=== PATIENT | female | born 1940 | race Two or more races ===

== ENCOUNTER 2017-02-03 15:09 | Emergency (ER) | payer OTHER ==
[~2017-02-03] VITALS: Ht 180.3 cm; Wt 72.6 kg
[~2017-02-03 15:09] MED LIST: ASP81EC PO; BENA40TA7 PO; GLIP-115; MET25T PO; METF-370 PO; PAR20T PO; SIMV20TA90 PO; TOPI50TA32
[2017-02-03 17:37] LABS: Basophils # (auto) 0.1 uL; Basophils % (auto) 1.2 % (0.0-2.0); Eosinophils # (auto) 0.3 uL; Eosinophils % (auto) 4.9 % (0.0-7.0); Hematocrit 43.4 % (36.0-46.0); Hemoglobin 14.8 g/dL (12.2-16.2); Lymphocytes # (auto) 2.7 uL; Lymphocytes % (auto) 50.6 % (10.0-50.0); Mean Corpuscular Hgb Conc. 34.2 g/dL (32.0-36.0); Mean Corpuscular Volume 93.6 fL (80.0-100.0); Mean Platelet Volume 8.3 fL (6.9-10.8); Monocytes # (auto) 0.4 uL; Monocytes % (auto) 6.7 % (0.0-12.0); Neutrophils # (auto) 1.9 uL; Neutrophils % (auto) 36.6 % (37.0-80.0); Nucleated Red Blood Cells % 0.1 %; Platelet Count (auto) 216 10^3/uL (140-450); Red Cell Distribution Width 12.3 % (11.8-14.3); White Blood Cell 5.2 10^3/uL (4.4-10.8)
[2017-02-03 17:46] LABS: Albumin 4.2 g/dL (3.4-5.0); BUN/Creatinine Ratio 17.6; Calcium 9.6 mg/dL (8.5-10.1)
[2017-02-03 17:49] LABS: Bilirubin, Total 0.4 mg/dL (0.2-1.0); Total Protein 8.4 g/dL (6.4-8.2)
[2017-02-03 17:55] VITALS: BP 149/85
[2017-02-03] MEDS ORDERED: SODIUM CHLORIDE 0.9% 500 ML IV ONE (18:04)
[2017-02-03] MEDS ORDERED: InsuLIN REG 1unit/0.01ml Soln (100units/ml) IV ONE (18:15)
[2017-02-03 18:33] LABS: Urine Bilirubin Negative (Negative); Urine Blood Negative /uL (Negative); Urine Color Colorless (Yellow); Urine Glucose 4+ mg/dL (Normal); Urine Ketone TRACE (Negative); Urine Mucus FEW (None Seen); Urine Nitrite Negative (Negative); Urine RBC 3 /hpf (0 - 4); Urine Squamous Epithelial Cell FEW /hpf (<5); Urine Urobilinogen Normal (Negative); Urine pH 5.5 (5.0-8.0)
== END 2017-02-03 19:40 | disposition home or self-care (01) ==
LOC: ER 15:12
DX: E11.65 Type 2 diabetes mellitus with hyperglycemia (principal); N39.0 Urinary tract infection, site not specified; I25.10 Atherosclerotic heart disease of native coronary artery without angina pectoris; K21.9 Gastro-esophageal reflux disease without esophagitis; E78.5 Hyperlipidemia, unspecified; I10 Essential (primary) hypertension; I25.2 Old myocardial infarction; Z98.61 Coronary angioplasty status; Z79.82 Long term (current) use of aspirin; Z79.899 Other long term (current) drug therapy
CPT/HCPCS: 36415; 80053; 81001; 82962; 85025; 93005; 94761; 96361; 96374; 99285; J1815; J7030

== ENCOUNTER 2017-03-22 05:56 | Emergency (ER) | payer OTHER ==
[~2017-03-22] VITALS: Ht 154.9 cm; Wt 68.0 kg
[2017-03-22 07:10] LABS: Basophils # (auto) 0.1 uL; Basophils % (auto) 1.3 % (0.0-2.0); Eosinophils # (auto) 0.3 uL; Eosinophils % (auto) 5.9 % (0.0-7.0); Hematocrit 39.5 % (36.0-46.0); Hemoglobin 13.3 g/dL (12.2-16.2); Lymphocytes # (auto) 2.1 uL; Lymphocytes % (auto) 46.6 % (10.0-50.0); Mean Corpuscular Hemoglobin 31.5 pg (28.0-32.0); Mean Corpuscular Hgb Conc. 33.7 g/dL (32.0-36.0); Mean Corpuscular Volume 93.5 fL (80.0-100.0); Monocytes # (auto) 0.4 uL; Monocytes % (auto) 8.6 % (0.0-12.0); Neutrophils # (auto) 1.7 uL; Neutrophils % (auto) 37.6 % (37.0-80.0); Platelet Count (auto) 216 10^3/uL (140-450); Red Blood Cells 4.23 10^6/uL (4.0-5.20); Red Cell Distribution Width 12.5 % (11.8-14.3); White Blood Cell 4.5 10^3/uL (4.4-10.8)
[2017-03-22 07:17] LABS: Urine Bacteria FEW /hpf (None Seen); Urine Blood Negative /uL (Negative); Urine Specific Gravity 1.013 (1.001-1.035); Urine WBC 8 /hpf (0 - 5)
[2017-03-22 07:24] LABS: INR 0.95 (0.9-1.15); Partial Thromboplastin Time 27.8 sec (22.64-33.71); Prothrombin Time 10.4 sec (9.37-12.3)
[2017-03-22 07:25] LABS: Alanine Aminotransferase 23 U/L (13-56); Albumin 3.4 g/dL (3.4-5.0); Amylase 43 U/L (25-115); Anion Gap 8 (5-15); Aspartate Aminotransferase 18 U/L (15-37); BUN/Creatinine Ratio 30.4; Blood Urea Nitrogen 21 mg/dL (7-18); Calcium 8.9 mg/dL (8.5-10.1); Carbon Dioxide 25 mmol/L (21-32); Chloride 103 mmol/L (98-107); GFR African American 106 mL/min; GFR Non-African American 87 mL/min; Glucose 304 mg/dL (74-106); Lipase 179 U/L (73-393); Potassium 4.3 mmol/L (3.5-5.1); Sodium 136 mmol/L (136-145)
[2017-03-22 07:30] LABS: Alkaline Phosphatase 79 U/L (45-117); Bilirubin, Total 0.4 mg/dL (0.2-1.0); Total Protein 7.2 g/dL (6.4-8.2)
[2017-03-22] MEDS ORDERED: SODIUM CHLORIDE 0.9% 1,000 ML IV ONE (07:58)
[2017-03-22] MEDS ORDERED: ASPirin 81 mg TAB PO ONE (08:00)
[2017-03-22] MEDS ORDERED: cefTRIAXone 1GM/50ML D5W 50 ML IV ONE (08:00)
[2017-03-22 09:41] VITALS: BP 131/71
== END 2017-03-22 10:27 | disposition home or self-care (01) ==
LOC: ER 06:15
DX: N39.0 Urinary tract infection, site not specified (principal); E11.9 Type 2 diabetes mellitus without complications; R51 Headache; K21.9 Gastro-esophageal reflux disease without esophagitis; I10 Essential (primary) hypertension; Z86.73 Personal history of transient ischemic attack (TIA), and cerebral infarction without residual deficits; Z95.1 Presence of aortocoronary bypass graft; Z98.61 Coronary angioplasty status
CPT/HCPCS: 36415; 80053; 81001; 82150; 82962; 83690; 83735; 84443; 84484; 85025; 85610; 85730; 93005; 96361; 96365; 99285; J0696; J7030

== ENCOUNTER 2017-03-30 07:48 | Emergency (ER) | payer OTHER ==
[~2017-03-30] VITALS: Ht 154.9 cm; Wt 70.3 kg
[2017-03-30 08:43] LABS: Basophils # (auto) 0.1 uL; Basophils % (auto) 1.4 % (0.0-2.0); Eosinophils # (auto) 0.2 uL; Eosinophils % (auto) 4.7 % (0.0-7.0); Hematocrit 41.3 % (36.0-46.0); Lymphocytes # (auto) 1.8 uL; Lymphocytes % (auto) 40.2 % (10.0-50.0); Mean Corpuscular Hemoglobin 31.8 pg (28.0-32.0); Mean Corpuscular Volume 93.7 fL (80.0-100.0); Mean Platelet Volume 7.7 fL (6.9-10.8); Monocytes # (auto) 0.3 uL; Monocytes % (auto) 6.9 % (0.0-12.0); Neutrophils # (auto) 2.1 uL; Neutrophils % (auto) 46.8 % (37.0-80.0); Nucleated Red Blood Cells % 0.1 %; Platelet Count (auto) 238 10^3/uL (140-450); Red Cell Distribution Width 12.7 % (11.8-14.3); White Blood Cell 4.5 10^3/uL (4.4-10.8)
[2017-03-30 08:50] LABS: Urine Bilirubin Negative (Negative); Urine Blood Negative /uL (Negative); Urine Color Yellow (Yellow); Urine Glucose 3+ mg/dL (Normal); Urine Ketone Negative (Negative); Urine Nitrite Negative (Negative); Urine RBC 1 /hpf (0 - 4); Urine Squamous Epithelial Cell FEW /hpf (<5); Urine Urobilinogen Normal (Negative)
[2017-03-30 08:56] LABS: Albumin 3.8 g/dL (3.4-5.0); BUN/Creatinine Ratio 15.6; Calcium 9.4 mg/dL (8.5-10.1); Potassium 4.5 mmol/L (3.5-5.1)
[2017-03-30 08:58] LABS: Bilirubin, Total 0.5 mg/dL (0.2-1.0); Total Protein 7.7 g/dL (6.4-8.2)
[2017-03-30] MEDS ORDERED: NITROFURANTOIN (MONO) 100 mg CAP PO ONE (09:30)
[2017-03-30 10:30] VITALS: BP 132/78
== END 2017-03-30 11:29 | disposition home or self-care (01) ==
LOC: ER 07:48
DX: N39.0 Urinary tract infection, site not specified (principal); K59.00 Constipation, unspecified; K21.9 Gastro-esophageal reflux disease without esophagitis; I25.10 Atherosclerotic heart disease of native coronary artery without angina pectoris; I10 Essential (primary) hypertension; E11.9 Type 2 diabetes mellitus without complications; E78.5 Hyperlipidemia, unspecified; I25.2 Old myocardial infarction; Z79.899 Other long term (current) drug therapy; Z98.61 Coronary angioplasty status
CPT/HCPCS: 36415; 74176; 80053; 81001; 85025; 93005

== ENCOUNTER 2017-04-06 07:05 | Emergency (ER) | payer OTHER ==
[~2017-04-06] VITALS: Ht 154.9 cm; Wt 70.3 kg
[2017-04-06 07:41] LABS: Urine Bilirubin Negative (Negative); Urine Blood Negative /uL (Negative); Urine Color Yellow (Yellow); Urine Glucose 3+ mg/dL (Normal); Urine Ketone TRACE (Negative); Urine Nitrite Negative (Negative); Urine RBC <1 /hpf (0 - 4); Urine Squamous Epithelial Cell FEW /hpf (<5); Urine Urobilinogen Normal (Negative); Urine pH 5.5 (5.0-8.0)
[2017-04-06 08:07] LABS: Basophils # (auto) 0.1 uL; Basophils % (auto) 2.2 % (0.0-2.0); Eosinophils # (auto) 0.3 uL; Hematocrit 42.8 % (36.0-46.0); Hemoglobin 14.7 g/dL (12.2-16.2); Lymphocytes # (auto) 1.7 uL; Lymphocytes % (auto) 43.3 % (10.0-50.0); Mean Corpuscular Hemoglobin 32.2 pg (28.0-32.0); Mean Corpuscular Hgb Conc. 34.4 g/dL (32.0-36.0); Mean Corpuscular Volume 93.6 fL (80.0-100.0); Mean Platelet Volume 7.7 fL (6.9-10.8); Monocytes # (auto) 0.3 uL; Neutrophils # (auto) 1.5 uL; Neutrophils % (auto) 39.5 % (37.0-80.0); Nucleated Red Blood Cells % 0.2 %; Platelet Count (auto) 221 10^3/uL (140-450); Red Cell Distribution Width 12.4 % (11.8-14.3); White Blood Cell 3.8 10^3/uL (4.4-10.8)
[2017-04-06 08:36] LABS: Albumin 3.9 g/dL (3.4-5.0); Alkaline Phosphatase 82 U/L (45-117); Anion Gap 10 (5-15); Aspartate Aminotransferase 16 U/L (15-37); Bilirubin, Total 0.5 mg/dL (0.2-1.0); Blood Urea Nitrogen 15 mg/dL (7-18); Carbon Dioxide 26 mmol/L (21-32); Chloride 101 mmol/L (98-107); GFR African American 96 mL/min; GFR Non-African American 79 mL/min; Glucose 320 mg/dL (74-106); Magnesium 2.1 mg/dL (1.6-2.6); Potassium 4.5 mmol/L (3.5-5.1); Sodium 137 mmol/L (136-145)
[2017-04-06 09:27] VITALS: BP 138/82
== END 2017-04-06 09:45 | disposition home or self-care (01) ==
LOC: ER 07:05
DX: N39.0 Urinary tract infection, site not specified (principal); E11.65 Type 2 diabetes mellitus with hyperglycemia; K21.9 Gastro-esophageal reflux disease without esophagitis; I10 Essential (primary) hypertension; I25.2 Old myocardial infarction; E78.5 Hyperlipidemia, unspecified; Z98.61 Coronary angioplasty status; Z79.4 Long term (current) use of insulin; Z86.73 Personal history of transient ischemic attack (TIA), and cerebral infarction without residual deficits
CPT/HCPCS: 36415; 71020; 74176; 80053; 81001; 83735; 84484; 85025; 93005

== ENCOUNTER 2017-07-17 01:02 | Inpatient (IN) | payer OTHER, MEDICAID ==
[~2017-07-17] VITALS: Ht 162.6 cm; Wt 72.6 kg
[2017-07-17] MEDS ORDERED: ONDANSETRON HCL 4 MG/2 ML VIAL IV ONE (01:45)
[2017-07-17] MEDS ORDERED: AMIODARONE HCL 150 MG in D5W 5% 100 ML IV ONE (01:45)
[2017-07-17] MEDS ORDERED: AMIODARONE HCL 900 MG in DEXTROSE 500 ML IV SCH (01:46)
[2017-07-17 02:04] LABS: Basophils # (auto) 0.1 uL; Basophils % (auto) 1.1 % (0.0-2.0); Eosinophils # (auto) 0.4 uL; Eosinophils % (auto) 5.4 % (0.0-7.0); Hemoglobin 12.9 g/dL (12.2-16.2); Lymphocytes # (auto) 3.6 uL; Lymphocytes % (auto) 52.3 % (10.0-50.0); Mean Corpuscular Hemoglobin 31.6 pg (28.0-32.0); Mean Corpuscular Hgb Conc. 33.8 g/dL (32.0-36.0); Mean Corpuscular Volume 93.6 fL (80.0-100.0); Monocytes # (auto) 0.5 uL; Monocytes % (auto) 7.5 % (0.0-12.0); Neutrophils # (auto) 2.4 uL; Neutrophils % (auto) 33.7 % (37.0-80.0); Nucleated Red Blood Cells % 0.1 %; Platelet Count (auto) 244 10^3/uL (140-450); Red Blood Cells 4.06 10^6/uL (4.0-5.20); Red Cell Distribution Width 12.7 % (11.8-14.3)
[2017-07-17 02:21] LABS: INR 0.93 (0.9-1.15); Partial Thromboplastin Time 28.8 sec (22.64-33.71); Prothrombin Time 10.1 sec (9.37-12.3)
[2017-07-17 02:27] LABS: Anion Gap 12 (5-15); Carbon Dioxide 22 mmol/L (21-32); Chloride 104 mmol/L (98-107); Glucose 215 mg/dL (74-106); Sodium 138 mmol/L (136-145)
[2017-07-17 02:28] LABS: Alanine Aminotransferase 40 U/L (13-56); Albumin 3.5 g/dL (3.4-5.0); Aspartate Aminotransferase 47 U/L (15-37); BUN/Creatinine Ratio 27.6; Blood Urea Nitrogen 24 mg/dL (7-18); Calcium 8.7 mg/dL (8.5-10.1); GFR African American 81 mL/min; GFR Non-African American 67 mL/min; Magnesium 1.8 mg/dL (1.6-2.6)
[2017-07-17] MEDS ORDERED: ENOXAPARIN SOD 60 MG/0.6 ML SYRINGE SC ONE (02:30)
[2017-07-17] MEDS ORDERED: ASPirin 325 MG TAB PO ONE (02:30)
[2017-07-17] MEDS ORDERED: NITROGLYCERIN 0.4MG/HR TOPICAL PATCH TD ONE (02:30)
[2017-07-17 02:33] LABS: Alkaline Phosphatase 68 U/L (45-117); Bilirubin, Total 0.4 mg/dL (0.2-1.0); Total Protein 7.2 g/dL (6.4-8.2)
[2017-07-17] MEDS ORDERED: DEXTROSE (50%) 50ML SYRG IV PRN (08:00)
[2017-07-17] MEDS ORDERED: NITROGLYCERIN 0.4 MG SL TAB SL PRN (08:00)
[2017-07-17] MEDS ORDERED: MORPHINE SULFATE 4 MG/ML SYR/VIAL IV PRN (08:00)
[2017-07-17] MEDS ORDERED: LACTULOSE 20Gm/30ML SOLN PO PRN (08:00)
[2017-07-17] MEDS ORDERED: SODIUM CHLORIDE 0.9% 1,000 ML IV ONE ×2 (08:15)
[2017-07-17 09:09] LABS: CRP High Sensitivity 0.27 mg/dL (< 0.3)
[2017-07-17] MEDS ORDERED: TOPIRAMATE 25 MG TAB PO SCH (10:00)
[2017-07-17] MEDS ORDERED: ENOXAPARIN SOD 40 MG/0.4 ML SYRINGE SC SCH (10:00)
[2017-07-17] MEDS ORDERED: PARoxetine 20 MG TAB PO SCH (10:00)
[2017-07-17] MEDS: SODIUM CHLORIDE 0.9% 1,000 ML IV SCH ×2 (10:38→22:50)
[2017-07-17] MEDS: METOPROLOL TARTRATE 25 MG TAB PO SCH ×2 (10:39→22:00)
[2017-07-17] MEDS ORDERED: CEFTRIAXONE SODIUM 2 GM in D5W 5% 50 ML IV ONE (10:45)
[2017-07-17 11:00] VITALS: BP 125/71
[2017-07-17] MEDS: ACCU-CHEK COMFORT CURVE STRIP VI SCH ×3 (12:58→22:25)
[2017-07-17] MEDS: InsuLIN REG 1unit/0.01ml Soln (100units/ml) SC SCH ×3 (12:58→22:28)
[2017-07-17 16:00] VITALS: BP 107/57
[2017-07-17 20:00] VITALS: BP 103/49
[2017-07-17] MEDS: ATORVASTATIN 20 MG TAB PO SCH (22:38)
[2017-07-17] MEDS: AMIODARONE HCL 200 MG TAB PO SCH (22:38)
[2017-07-17] MEDS: ENOXAPARIN SOD 100 MG/1 ML SYRINGE SC SCH (22:39)
[2017-07-18] VITALS: BP 114/73
[2017-07-18 04:00] VITALS: BP 97/57
[2017-07-18 04:46] LABS: Urine Bacteria NONE SEEN /hpf (None Seen); Urine Blood Negative /uL (Negative); Urine Specific Gravity 1.005 (1.001-1.035); Urine WBC 1 /hpf (0 - 5)
[2017-07-18 05:57] LABS: Cholesterol 148 mg/dL (< 200); HDL Cholesterol 42 mg/dL (40-59); LDL Cholesterol 97 mg/dL (< 100); Triglycerides 89 mg/dL (< 150)
[2017-07-18] MEDS: InsuLIN REG 1unit/0.01ml Soln (100units/ml) SC SCH ×4 (07:00→21:44)
[2017-07-18 08:00] VITALS: BP 103/67
[2017-07-18] MEDS ORDERED: cefTRIAXone 1GM/10ml IVPUSH 10 ML IV SCH (09:00)
[2017-07-18] MEDS: ACCU-CHEK COMFORT CURVE STRIP VI SCH ×4 (09:02→21:44)
[2017-07-18] MEDS: AMIODARONE HCL 200 MG TAB PO SCH ×2 (09:51→21:43)
[2017-07-18] MEDS: ASPirin 81 mg TAB PO SCH (09:51)
[2017-07-18] MEDS: ENOXAPARIN SOD 100 MG/1 ML SYRINGE SC SCH ×2 (09:52→21:44)
[2017-07-18] MEDS: METOPROLOL TARTRATE 25 MG TAB PO SCH ×2 (09:52→21:44)
[2017-07-18 12:00] VITALS: BP 135/70
[2017-07-18] MEDS: SODIUM CHLORIDE 0.9% 1,000 ML IV SCH (14:36)
[2017-07-18 16:00] VITALS: BP 122/64
[2017-07-18] MEDS: ATORVASTATIN 20 MG TAB PO SCH (21:43)
[2017-07-18] MEDS: SENNA 8.6 MG TAB PO SCH (21:44)
[2017-07-18 22:00] VITALS: BP 132/67
[2017-07-19] MEDS: SODIUM CHLORIDE 0.9% 1,000 ML IV SCH ×3 (01:35→19:47)
[2017-07-19 05:01] VITALS: BP 104/53
[2017-07-19 05:51] LABS: Basophils # (auto) 0.1 uL; Basophils % (auto) 1.2 % (0.0-2.0); Eosinophils # (auto) 0.5 uL; Eosinophils % (auto) 9.5 % (0.0-7.0); Hematocrit 33.3 % (36.0-46.0); Hemoglobin 11.5 g/dL (12.2-16.2); Lymphocytes # (auto) 2.5 uL; Lymphocytes % (auto) 45.7 % (10.0-50.0); Mean Corpuscular Hemoglobin 32.2 pg (28.0-32.0); Mean Corpuscular Hgb Conc. 34.5 g/dL (32.0-36.0); Mean Corpuscular Volume 93.5 fL (80.0-100.0); Monocytes # (auto) 0.5 uL; Monocytes % (auto) 10.1 % (0.0-12.0); Neutrophils # (auto) 1.8 uL; Neutrophils % (auto) 33.5 % (37.0-80.0); Nucleated Red Blood Cells % 0.1 %; Platelet Count (auto) 193 10^3/uL (140-450); Red Blood Cells 3.56 10^6/uL (4.0-5.20); Red Cell Distribution Width 12.8 % (11.8-14.3); White Blood Cell 5.4 10^3/uL (4.4-10.8)
[2017-07-19 06:13] LABS: BUN/Creatinine Ratio 17.9; Calcium 8.2 mg/dL (8.5-10.1); Potassium 4.2 mmol/L (3.5-5.1)
[2017-07-19] MEDS: ACCU-CHEK COMFORT CURVE STRIP VI SCH ×4 (06:28→21:36)
[2017-07-19] MEDS: InsuLIN REG 1unit/0.01ml Soln (100units/ml) SC SCH ×4 (06:30→21:46)
[2017-07-19] MEDS: ASPirin 81 mg TAB PO SCH (08:37)
[2017-07-19] MEDS: AMIODARONE HCL 200 MG TAB PO SCH ×2 (08:37→21:32)
[2017-07-19] MEDS: ENOXAPARIN SOD 100 MG/1 ML SYRINGE SC SCH ×2 (08:38→21:33)
[2017-07-19] MEDS: METOPROLOL TARTRATE 25 MG TAB PO SCH ×2 (08:40→21:35)
[2017-07-19 08:42] VITALS: BP 123/66
[2017-07-19 13:00] VITALS: BP 127/63
[2017-07-19 17:08] VITALS: BP 134/65
[2017-07-19] MEDS: ATORVASTATIN 20 MG TAB PO SCH (21:31)
[2017-07-19] MEDS: SENNA 8.6 MG TAB PO SCH (21:34)
[2017-07-19 22:00] VITALS: BP 126/66
[2017-07-20 05:00] VITALS: BP 135/66
[2017-07-20] MEDS: ACCU-CHEK COMFORT CURVE STRIP VI SCH ×4 (06:28→21:44)
[2017-07-20] MEDS: InsuLIN REG 1unit/0.01ml Soln (100units/ml) SC SCH ×4 (06:31→21:44)
[2017-07-20 06:37] LABS: Basophils # (auto) 0.1 uL; Basophils % (auto) 1.3 % (0.0-2.0); Eosinophils # (auto) 0.5 uL; Eosinophils % (auto) 8.8 % (0.0-7.0); Hematocrit 35.3 % (36.0-46.0); Hemoglobin 12.2 g/dL (12.2-16.2); Lymphocytes # (auto) 2.2 uL; Lymphocytes % (auto) 41.9 % (10.0-50.0); Mean Corpuscular Hemoglobin 32.3 pg (28.0-32.0); Mean Corpuscular Hgb Conc. 34.5 g/dL (32.0-36.0); Mean Corpuscular Volume 93.4 fL (80.0-100.0); Monocytes # (auto) 0.5 uL; Monocytes % (auto) 10.5 % (0.0-12.0); Neutrophils # (auto) 1.9 uL; Neutrophils % (auto) 37.5 % (37.0-80.0); Nucleated Red Blood Cells % 0.1 %; Platelet Count (auto) 203 10^3/uL (140-450); Red Blood Cells 3.78 10^6/uL (4.0-5.20); White Blood Cell 5.1 10^3/uL (4.4-10.8)
[2017-07-20 06:54] LABS: BUN/Creatinine Ratio 18.5; Calcium 8.5 mg/dL (8.5-10.1); Magnesium 2.1 mg/dL (1.6-2.6); Potassium 4.2 mmol/L (3.5-5.1)
[2017-07-20 08:22] VITALS: BP 128/62
[2017-07-20] MEDS: METOPROLOL TARTRATE 25 MG TAB PO SCH ×2 (09:42→21:21)
[2017-07-20] MEDS: ENOXAPARIN SOD 100 MG/1 ML SYRINGE SC SCH ×2 (10:00→21:21)
[2017-07-20] MEDS: ASPirin 81 mg TAB PO SCH (10:20)
[2017-07-20] MEDS: AMIODARONE HCL 200 MG TAB PO SCH ×2 (10:20→21:20)
[2017-07-20 11:28] VITALS: BP 135/74
[2017-07-20 17:12] VITALS: BP 141/71
[2017-07-20] MEDS: SODIUM CHLORIDE 0.9% 1,000 ML IV SCH (17:52)
[2017-07-20] MEDS: ATORVASTATIN 20 MG TAB PO SCH (21:20)
[2017-07-20] MEDS: SENNA 8.6 MG TAB PO SCH (21:20)
[2017-07-21 04:59] VITALS: BP 119/66
[2017-07-21] MEDS: ACCU-CHEK COMFORT CURVE STRIP VI SCH ×2 (06:18→12:01)
[2017-07-21] MEDS: InsuLIN REG 1unit/0.01ml Soln (100units/ml) SC SCH ×2 (06:18→11:30)
[2017-07-21] MEDS: SODIUM CHLORIDE 0.9% 1,000 ML IV SCH (06:50)
[2017-07-21 06:53] LABS: Basophils # (auto) 0.1 uL; Basophils % (auto) 1.1 % (0.0-2.0); Eosinophils # (auto) 0.5 uL; Eosinophils % (auto) 8.9 % (0.0-7.0); Hematocrit 35.8 % (36.0-46.0); Hemoglobin 12.2 g/dL (12.2-16.2); Lymphocytes # (auto) 2.3 uL; Lymphocytes % (auto) 45.6 % (10.0-50.0); Mean Corpuscular Hgb Conc. 34.1 g/dL (32.0-36.0); Monocytes # (auto) 0.5 uL; Monocytes % (auto) 10.4 % (0.0-12.0); Neutrophils # (auto) 1.7 uL; Nucleated Red Blood Cells % 0.2 %; Platelet Count (auto) 208 10^3/uL (140-450); Red Blood Cells 3.81 10^6/uL (4.0-5.20); Red Cell Distribution Width 13.2 % (11.8-14.3); White Blood Cell 5.1 10^3/uL (4.4-10.8)
[2017-07-21 07:13] LABS: Potassium 4.7 mmol/L (3.5-5.1)
[2017-07-21 07:19] LABS: BUN/Creatinine Ratio 19.4
[2017-07-21 09:00] VITALS: BP 123/60
[2017-07-21] MEDS: METOPROLOL TARTRATE 25 MG TAB PO SCH (10:00)
[2017-07-21] MEDS: ENOXAPARIN SOD 100 MG/1 ML SYRINGE SC SCH (10:00)
[2017-07-21] MEDS: ASPirin 81 mg TAB PO SCH (10:07)
[2017-07-21] MEDS: AMIODARONE HCL 200 MG TAB PO SCH (10:07)
[2017-07-21] MEDS ORDERED: SODIUM CHL 0.9% 0 ML ONE ×2 (11:23→12:59)
[2017-07-21] MEDS ORDERED: ANGIOMAX 250 MG VIAL IV ONE ×2 (11:23→12:58)
[2017-07-21] MEDS ORDERED: LIDOCAINE 2%HCL (LOCAL ANESTH.) INJ 20ML MDV ONE (11:30)
[2017-07-21] MEDS ORDERED: IOHEXOL 350 MG/ML 100ML IJ ONE (11:30)
[2017-07-21 11:41] LABS: INR 0.95 (0.9-1.15); Partial Thromboplastin Time 29.9 sec (22.64-33.71); Prothrombin Time 10.4 sec (9.37-12.3)
[2017-07-21 12:12] VITALS: BP 136/73
[2017-07-21] MEDS ORDERED: fentaNYL CITRATE 100 MCG/2 ML VL ONE (12:58)
[2017-07-21] MEDS ORDERED: MIDAZOLAM HCL 1MG/1ML-2 ML VIAL ONE (12:59)
[2017-07-21 16:08] VITALS: BP 123/60
[2017-07-21 16:37] VITALS: BP 120/64
== END 2017-07-21 17:40 | disposition home or self-care (01) | DRG 281 ==
LOC: ER 01:02 → TELE 01:03 → DOU IN ICU 11:02 → TELE-CENTR 07-18 16:17
PROVIDERS: ADMIT Internal Medicine; ATTEND Internal Medicine
PROC: 4A023N7 Measurement of Cardiac Sampling and Pressure, Left Heart, Percutaneous Approach (ICD-10-PCS; principal; 2017-07-21)
PROC: B2111ZZ Fluoroscopy of Multiple Coronary Arteries using Low Osmolar Contrast (ICD-10-PCS; 2017-07-21)
PROC: B2151ZZ Fluoroscopy of Left Heart using Low Osmolar Contrast (ICD-10-PCS; 2017-07-21)
DX: I21.4 Non-ST elevation (NSTEMI) myocardial infarction (principal); I47.1 Supraventricular tachycardia; E11.65 Type 2 diabetes mellitus with hyperglycemia; I95.9 Hypotension, unspecified; I42.1 Obstructive hypertrophic cardiomyopathy; I25.2 Old myocardial infarction; E78.5 Hyperlipidemia, unspecified; H91.90 Unspecified hearing loss, unspecified ear; I10 Essential (primary) hypertension; I25.110 Atherosclerotic heart disease of native coronary artery with unstable angina pectoris; K21.9 Gastro-esophageal reflux disease without esophagitis; Z82.49 Family history of ischemic heart disease and other diseases of the circulatory system; Z83.3 Family history of diabetes mellitus; Z95.5 Presence of coronary angioplasty implant and graft; Z82.69 Family history of other diseases of the musculoskeletal system and connective tissue; Z79.82 Long term (current) use of aspirin; Z79.899 Other long term (current) drug therapy
CPT/HCPCS: 36415; 36600; 71045; 80048; 80053; 80061; 81001; 82550; 82805; 82962; 83036; 83735; 83880; 84443; 84484; 85025; 85379; 85610; 85652; 85730; 86141; 86850; 86900; 86901; 87081; 87086; 93005; 93306; 93458; 96361; 96365; 96372; 96375; 99152; 99291; J0696; J1815; J2250; J2405; J7060

== ENCOUNTER 2021-01-09 06:37 | Emergency (ER) | payer OTHER, MEDICAID ==
[~2021-01-09] VITALS: Ht 157.5 cm; Wt 63.5 kg
[~2021-01-09 06:37] MED LIST changes: -ASP81EC PO; +ASPI-394 PO; -BENA40TA7 PO; -GLIP-115; +GLIP5TAB12; -PAR20T PO; +SIMV20TA2 PO; -SIMV20TA90 PO; -TOPI50TA32
[2021-01-09 07:17] LABS: Basophils # (auto) 0 10 ^3/uL (0-0.2); Basophils % (auto) 1.1 % (0.0-2.0); Eosinophils # (auto) 0.2 10 ^3/uL (0-0.8); Eosinophils % (auto) 5.9 % (0.0-7.0); Hematocrit 37.2 % (36.0-46.0); Hemoglobin 12.8 g/dL (12.2-16.2); Lymphocytes # (auto) 2.1 10 ^3/uL (0.4-5.4); Lymphocytes % (auto) 51.7 % (10.0-50.0); Mean Corpuscular Hemoglobin 31.9 pg (28.0-32.0); Mean Corpuscular Hgb Conc. 34.5 g/dL (32.0-36.0); Mean Corpuscular Volume 92.4 fL (80.0-100.0); Monocytes # (auto) 0.3 10 ^3/uL (0-1.3); Monocytes % (auto) 6.7 % (0.0-12.0); Neutrophils # (auto) 1.4 10 ^3/uL (1.6-8.6); Neutrophils % (auto) 34.6 % (37.0-80.0); Nucleated Red Blood Cells % 0.1 %; Red Blood Cells 4.03 10^6/uL (4.0-5.20); Red Cell Distribution Width 12.7 % (11.8-14.3)
[2021-01-09 07:48] LABS: Alanine Aminotransferase 19 U/L (13-56); Albumin 3.4 g/dL (3.4-5.0); Anion Gap 9 (5-15); Aspartate Aminotransferase 18 U/L (15-37); BUN/Creatinine Ratio 20.8; Blood Urea Nitrogen 15 mg/dL (7-18); Calcium 8.5 mg/dL (8.5-10.1); Carbon Dioxide 19 mmol/L (21-32); Chloride 107 mmol/L (98-107); GFR African American 100 mL/min; GFR Non-African American 83 mL/min; Glucose 343 mg/dL (74-106); Potassium 3.7 mmol/L (3.5-5.1); Sodium 135 mmol/L (136-145)
[2021-01-09 07:54] LABS: Alkaline Phosphatase 87 U/L (45-117); Bilirubin, Total 0.4 mg/dL (0.2-1.0); Total Protein 7.2 g/dL (6.4-8.2)
[2021-01-09] MEDS ORDERED: PROCHLORPERAZINE EDISYLATE 5 MG/ML 2ML VIAL IV ONE (09:00)
[2021-01-09] MEDS ORDERED: MORPHINE SULFATE INJECTION 2 MG/2 ML SYRG IV ONE (09:00)
[2021-01-09] MEDS ORDERED: SODIUM CHLORIDE 0.9% 1,000 ML IV ONE (09:00)
[2021-01-09] MEDS ORDERED: INSULIN LISPRO (HUMAN) 100 UNITS/ML ML SC ONE ×2 (10:00→18:45)
[2021-01-09 16:19] LABS: Urine Bacteria NONE SEEN /hpf (None Seen); Urine Blood Negative /uL (Negative); Urine Mucus FEW (None Seen); Urine Specific Gravity 1.036 (1.001-1.035); Urine WBC 111 /hpf (0 - 5)
[2021-01-09] MEDS ORDERED: SODIUM CHLORIDE 0.9% 2,000 ML IV ONE (18:45)
[2021-01-09 20:34] VITALS: BP 142/75
== END 2021-01-09 20:39 | disposition home or self-care (01) ==
LOC: ER 06:37
DX: I10 Essential (primary) hypertension (principal); G44.209 Tension-type headache, unspecified, not intractable; E11.65 Type 2 diabetes mellitus with hyperglycemia; N39.0 Urinary tract infection, site not specified; I25.10 Atherosclerotic heart disease of native coronary artery without angina pectoris; K21.9 Gastro-esophageal reflux disease without esophagitis; E78.5 Hyperlipidemia, unspecified; I25.2 Old myocardial infarction
CPT/HCPCS: 36415; 70450; 71046; 80053; 81001; 82962; 83735; 84484; 85025; 93005; 96361; 96372; 96374; 96375; 99285; J0780; J1815; J2270; J7030

== ENCOUNTER 2021-07-28 10:05 | Inpatient (IN) | payer OTHER, MEDICAID ==
[~2021-07-28] VITALS: Ht 185.4 cm; Wt 74.9 kg
[2021-07-28] VITALS (31 sets, daily range): BP systolic 108–147; BP diastolic 44–78
[2021-07-28 11:13] LABS: Basophils # (auto) 0.1 10 ^3/uL (0-0.2); Basophils % (auto) 1.2 % (0.0-2.0); Eosinophils # (auto) 0.2 10 ^3/uL (0-0.8); Eosinophils % (auto) 4.1 % (0.0-7.0); Hematocrit 34.4 % (36.0-46.0); Lymphocytes # (auto) 1.8 10 ^3/uL (0.4-5.4); Lymphocytes % (auto) 44.1 % (10.0-50.0); Mean Corpuscular Hemoglobin 31.8 pg (28.0-32.0); Mean Corpuscular Hgb Conc. 34.7 g/dL (32.0-36.0); Mean Corpuscular Volume 91.5 fL (80.0-100.0); Monocytes # (auto) 0.3 10 ^3/uL (0-1.3); Monocytes % (auto) 7.6 % (0.0-12.0); Neutrophils # (auto) 1.8 10 ^3/uL (1.6-8.6); Nucleated Red Blood Cells % 0.1 %; Red Blood Cells 3.76 10^6/uL (4.0-5.20); Red Cell Distribution Width 12.9 % (11.8-14.3); White Blood Cell 4.1 10^3/uL (4.4-10.8)
[2021-07-28] MEDS ORDERED: LORazepam 2MG/ML-1ML VIAL IV ONE (11:15)
[2021-07-28] MEDS ORDERED: ASPirin 81 mg TAB PO ONE (11:15)
[2021-07-28 11:34] LABS: Albumin 3.6 g/dL (3.4-5.0); Calcium 8.8 mg/dL (8.5-10.1); Potassium 3.6 mmol/L (3.5-5.1)
[2021-07-28 11:41] LABS: BUN/Creatinine Ratio 26.3; Bilirubin, Total 0.5 mg/dL (0.2-1.0); Total Protein 7.2 g/dL (6.4-8.2)
[2021-07-28] MEDS ORDERED: MORPHINE SULFATE INJECTION 2 MG/ML SYRG IV PRN ×2 (13:00)
[2021-07-28] MEDS ORDERED: ONDANSETRON HCL 4 MG/2 ML VIAL IV PRN (13:00)
[2021-07-28] MEDS ORDERED: DOCUSATE SOD 100 MG CAP PO PRN (13:00)
[2021-07-28] MEDS ORDERED: NITROGLYCERIN 0.4 MG SL TAB SL PRN (13:00)
[2021-07-28] MEDS ORDERED: ACETAMINOPHEN 325 MG TAB PO PRN (13:00)
[2021-07-28] MEDS: AMIODARONE 450mg/250ml AE 250 ML IV SCH (13:29)
[2021-07-28] MEDS: SODIUM CHLORIDE 0.9% 1,000 ML IV SCH (13:32)
[2021-07-28] MEDS ORDERED: DEXTROSE (50%) 50ML SYRG IV PRN (13:45)
[2021-07-28 14:20] LABS: Cholesterol 106 mg/dL (< 200); HDL Cholesterol 59 mg/dL (40-59); LDL Cholesterol 36 mg/dL (< 100); Triglycerides 124 mg/dL (< 150)
[2021-07-28] MEDS: ACCU-CHEK COMFORT CURVE STRIP VI SCH ×2 (17:00→21:37)
[2021-07-28] MEDS: InsuLIN REG 1unit/0.01ml Soln (100units/ml) SC SCH ×2 (17:35→21:36)
[2021-07-28] MEDS ORDERED: AMIODARONE 450mg/250ml AE 250 ML IV SCH (18:45)
[2021-07-28] MEDS: HYDROcodone-ACET 5/325MG TAB PO PRN (23:30)
[2021-07-29] VITALS (44 sets, daily range): BP systolic 82–153; BP diastolic 26–93
[2021-07-29] MEDS: AMIODARONE 450mg/250ml AE 250 ML IV SCH (03:52)
[2021-07-29] MEDS: SODIUM CHLORIDE 0.9% 1,000 ML IV SCH ×2 (05:40→21:50)
[2021-07-29 06:32] LABS: Basophils # (auto) 0.1 10 ^3/uL (0-0.2); Basophils % (auto) 1.2 % (0.0-2.0); Eosinophils # (auto) 0.2 10 ^3/uL (0-0.8); Eosinophils % (auto) 4.7 % (0.0-7.0); Hematocrit 35.5 % (36.0-46.0); Hemoglobin 12.3 g/dL (12.2-16.2); Lymphocytes # (auto) 2.3 10 ^3/uL (0.4-5.4); Lymphocytes % (auto) 49.8 % (10.0-50.0); Mean Corpuscular Hemoglobin 31.9 pg (28.0-32.0); Mean Corpuscular Hgb Conc. 34.7 g/dL (32.0-36.0); Monocytes # (auto) 0.4 10 ^3/uL (0-1.3); Monocytes % (auto) 9.2 % (0.0-12.0); Neutrophils # (auto) 1.6 10 ^3/uL (1.6-8.6); Neutrophils % (auto) 35.1 % (37.0-80.0); Nucleated Red Blood Cells % 0.1 %; Red Blood Cells 3.87 10^6/uL (4.0-5.20); Red Cell Distribution Width 12.8 % (11.8-14.3); White Blood Cell 4.7 10^3/uL (4.4-10.8)
[2021-07-29 06:53] LABS: Albumin 3.4 g/dL (3.4-5.0); Calcium 8.8 mg/dL (8.5-10.1); Potassium 3.9 mmol/L (3.5-5.1)
[2021-07-29 06:55] LABS: BUN/Creatinine Ratio 28.8
[2021-07-29 06:58] LABS: Bilirubin, Total 0.5 mg/dL (0.2-1.0); Total Protein 6.9 g/dL (6.4-8.2)
[2021-07-29] MEDS: InsuLIN REG 1unit/0.01ml Soln (100units/ml) SC SCH ×4 (07:00→21:47)
[2021-07-29] MEDS: ACCU-CHEK COMFORT CURVE STRIP VI SCH ×4 (07:00→21:48)
[2021-07-29] MEDS: AMIODARONE HCL 200 MG TAB PO SCH ×2 (10:00→21:49)
[2021-07-29] MEDS ORDERED: ASPirin 81 mg TAB PO ONE (11:00)
[2021-07-29] MEDS ORDERED: TEMAZEPAM 15 MG CAP PO ONE (20:30)
[2021-07-29] MEDS: ATORVASTATIN 20 MG TAB PO SCH (21:49)
[2021-07-29] MEDS: HYDROcodone-ACET 5/325MG TAB PO PRN (21:50)
[2021-07-29] MEDS ORDERED: LORazepam 2MG/ML-1ML VIAL IV PRN (22:00)
[2021-07-30] VITALS (13 sets, daily range): BP systolic 109–151; BP diastolic 54–71
[2021-07-30 06:09] LABS: Basophils # (auto) 0.1 10 ^3/uL (0-0.2); Eosinophils # (auto) 0.3 10 ^3/uL (0-0.8); Eosinophils % (auto) 4.6 % (0.0-7.0); Hematocrit 35.4 % (36.0-46.0); Hemoglobin 12.4 g/dL (12.2-16.2); Lymphocytes # (auto) 2.9 10 ^3/uL (0.4-5.4); Lymphocytes % (auto) 50.3 % (10.0-50.0); Mean Corpuscular Hemoglobin 32.3 pg (28.0-32.0); Mean Corpuscular Volume 92.2 fL (80.0-100.0); Monocytes # (auto) 0.6 10 ^3/uL (0-1.3); Monocytes % (auto) 9.8 % (0.0-12.0); Neutrophils % (auto) 34.3 % (37.0-80.0); Red Blood Cells 3.83 10^6/uL (4.0-5.20); Red Cell Distribution Width 12.9 % (11.8-14.3); White Blood Cell 5.8 10^3/uL (4.4-10.8)
[2021-07-30 06:28] LABS: Albumin 3.5 g/dL (3.4-5.0); Calcium 8.8 mg/dL (8.5-10.1); Potassium 3.8 mmol/L (3.5-5.1)
[2021-07-30 06:31] LABS: BUN/Creatinine Ratio 20.2; Bilirubin, Total 0.5 mg/dL (0.2-1.0); Total Protein 7.2 g/dL (6.4-8.2)
[2021-07-30] MEDS: ACCU-CHEK COMFORT CURVE STRIP VI SCH ×4 (07:00→21:47)
[2021-07-30] MEDS: InsuLIN REG 1unit/0.01ml Soln (100units/ml) SC SCH ×4 (07:00→21:48)
[2021-07-30] MEDS ORDERED: LACTULOSE 20Gm/30ML SOLN PO ONE (09:00)
[2021-07-30] MEDS: ASPirin 81 mg TAB PO SCH (10:22)
[2021-07-30] MEDS: DOCUSATE SOD 100 MG CAP PO SCH ×2 (10:23→21:47)
[2021-07-30] MEDS: AMIODARONE HCL 200 MG TAB PO SCH ×2 (10:23→21:47)
[2021-07-30] MEDS: HYDROcodone-ACET 5/325MG TAB PO PRN ×2 (12:24→23:11)
[2021-07-30] MEDS: SODIUM CHLORIDE 0.9% 1,000 ML IV SCH (15:00)
[2021-07-30] MEDS: ATORVASTATIN 20 MG TAB PO SCH (21:47)
[2021-07-31] VITALS (10 sets, daily range): BP systolic 115–133; BP diastolic 60–72
[2021-07-31 06:07] LABS: Basophils # (auto) 0 10 ^3/uL (0-0.2); Basophils % (auto) 0.6 % (0.0-2.0); Eosinophils # (auto) 0.2 10 ^3/uL (0-0.8); Eosinophils % (auto) 4.2 % (0.0-7.0); Hematocrit 35.4 % (36.0-46.0); Hemoglobin 12.3 g/dL (12.2-16.2); Lymphocytes # (auto) 2.6 10 ^3/uL (0.4-5.4); Lymphocytes % (auto) 43.2 % (10.0-50.0); Mean Corpuscular Hgb Conc. 34.9 g/dL (32.0-36.0); Mean Corpuscular Volume 91.7 fL (80.0-100.0); Monocytes # (auto) 0.5 10 ^3/uL (0-1.3); Monocytes % (auto) 8.2 % (0.0-12.0); Neutrophils # (auto) 2.6 10 ^3/uL (1.6-8.6); Neutrophils % (auto) 43.8 % (37.0-80.0); Red Blood Cells 3.86 10^6/uL (4.0-5.20); Red Cell Distribution Width 12.8 % (11.8-14.3); White Blood Cell 5.9 10^3/uL (4.4-10.8)
[2021-07-31 06:13] LABS: INR 1.04 (0.9-1.15); Partial Thromboplastin Time 28.1 sec (23.6-33.0)
[2021-07-31 06:15] LABS: Potassium 4.4 mmol/L (3.5-5.1)
[2021-07-31] MEDS: InsuLIN REG 1unit/0.01ml Soln (100units/ml) SC SCH ×4 (06:26→22:31)
[2021-07-31] MEDS: ACCU-CHEK COMFORT CURVE STRIP VI SCH ×4 (06:26→22:28)
[2021-07-31 06:27] LABS: Albumin 3.5 g/dL (3.4-5.0); Bilirubin, Total 0.7 mg/dL (0.2-1.0); Calcium 8.6 mg/dL (8.5-10.1); Total Protein 7.1 g/dL (6.4-8.2)
[2021-07-31] MEDS: SODIUM CHLORIDE 0.9% 1,000 ML IV SCH (07:40)
[2021-07-31] MEDS: AMIODARONE HCL 200 MG TAB PO SCH ×2 (09:56→22:27)
[2021-07-31] MEDS: ASPirin 81 mg TAB PO SCH (09:56)
[2021-07-31] MEDS: DOCUSATE SOD 100 MG CAP PO SCH ×2 (09:56→22:27)
[2021-07-31] MEDS ORDERED: ANGIOMAX 250 MG VIAL IV ONE (13:09)
[2021-07-31] MEDS ORDERED: SODIUM CHL 0.9% 0 ML ONE (13:10)
[2021-07-31] MEDS ORDERED: fentaNYL CITRATE 100 MCG/2 ML VL ONE (13:10)
[2021-07-31] MEDS ORDERED: LIDOCAINE 2%HCL (LOCAL ANESTH.) INJ 10ml MDV ONE (13:10)
[2021-07-31] MEDS ORDERED: MIDAZOLAM HCL 2MG/2ML 2ml VIAL (1mg/ml) ONE (13:10)
[2021-07-31] MEDS: HYDROcodone-ACET 5/325MG TAB PO PRN (22:10)
[2021-07-31] MEDS: ATORVASTATIN 20 MG TAB PO SCH (22:27)
[2021-08-01] MEDS: SODIUM CHLORIDE 0.9% 1,000 ML IV SCH ×2 (00:46→17:00)
[2021-08-01 05:00] VITALS: BP 108/66
[2021-08-01 05:57] LABS: Basophils # (auto) 0 10 ^3/uL (0-0.2); Eosinophils # (auto) 0.2 10 ^3/uL (0-0.8); Eosinophils % (auto) 3.9 % (0.0-7.0); Hematocrit 34.6 % (36.0-46.0); Hemoglobin 11.9 g/dL (12.2-16.2); Lymphocytes # (auto) 1.7 10 ^3/uL (0.4-5.4); Lymphocytes % (auto) 35.9 % (10.0-50.0); Mean Corpuscular Hemoglobin 31.5 pg (28.0-32.0); Mean Corpuscular Hgb Conc. 34.5 g/dL (32.0-36.0); Mean Corpuscular Volume 91.5 fL (80.0-100.0); Monocytes # (auto) 0.5 10 ^3/uL (0-1.3); Monocytes % (auto) 10.8 % (0.0-12.0); Neutrophils # (auto) 2.3 10 ^3/uL (1.6-8.6); Neutrophils % (auto) 48.4 % (37.0-80.0); Red Blood Cells 3.78 10^6/uL (4.0-5.20); White Blood Cell 4.7 10^3/uL (4.4-10.8)
[2021-08-01] MEDS: ACCU-CHEK COMFORT CURVE STRIP VI SCH ×4 (06:00→22:06)
[2021-08-01] MEDS: InsuLIN REG 1unit/0.01ml Soln (100units/ml) SC SCH ×4 (06:01→22:13)
[2021-08-01 06:22] LABS: Albumin 3.2 g/dL (3.4-5.0); Calcium 8.3 mg/dL (8.5-10.1); Potassium 3.7 mmol/L (3.5-5.1)
[2021-08-01 06:26] LABS: BUN/Creatinine Ratio 21.9; Bilirubin, Total 0.6 mg/dL (0.2-1.0); Total Protein 6.6 g/dL (6.4-8.2)
[2021-08-01 09:00] VITALS: BP 133/68
[2021-08-01] MEDS: ASPirin 81 mg TAB PO SCH (10:32)
[2021-08-01] MEDS: AMIODARONE HCL 200 MG TAB PO SCH ×2 (10:33→22:07)
[2021-08-01] MEDS: DOCUSATE SOD 100 MG CAP PO SCH ×2 (10:33→22:07)
[2021-08-01] MEDS ORDERED: DULO1CAP4 PO (10:46)
[2021-08-01] MEDS ORDERED: GLIP10TA9 PO (10:46)
[2021-08-01] MEDS ORDERED: ROSU1TAB14 PO (10:46)
[2021-08-01] MEDS ORDERED: CAL025T GT (10:46)
[2021-08-01] MEDS ORDERED: CHOL20007 PO (10:46)
[2021-08-01] MEDS ORDERED: 1,4-CRY XX (10:46)
[2021-08-01 13:00] VITALS: BP 158/80
[2021-08-01 17:00] VITALS: BP 126/61
[2021-08-01 22:00] VITALS: BP 135/66
[2021-08-01] MEDS: ATORVASTATIN 20 MG TAB PO SCH (22:07)
[2021-08-02 05:00] VITALS: BP 149/72
[2021-08-02] MEDS: ACCU-CHEK COMFORT CURVE STRIP VI SCH ×4 (05:55→23:45)
[2021-08-02] MEDS: InsuLIN REG 1unit/0.01ml Soln (100units/ml) SC SCH ×4 (05:55→23:46)
[2021-08-02 07:12] LABS: Basophils # (auto) 0 10 ^3/uL (0-0.2); Basophils % (auto) 0.8 % (0.0-2.0); Eosinophils # (auto) 0.2 10 ^3/uL (0-0.8); Eosinophils % (auto) 5.1 % (0.0-7.0); Hemoglobin 12.2 g/dL (12.2-16.2); Lymphocytes # (auto) 1.5 10 ^3/uL (0.4-5.4); Lymphocytes % (auto) 31.4 % (10.0-50.0); Mean Corpuscular Hemoglobin 31.8 pg (28.0-32.0); Mean Corpuscular Hgb Conc. 34.8 g/dL (32.0-36.0); Mean Corpuscular Volume 91.4 fL (80.0-100.0); Monocytes # (auto) 0.5 10 ^3/uL (0-1.3); Monocytes % (auto) 9.8 % (0.0-12.0); Neutrophils # (auto) 2.6 10 ^3/uL (1.6-8.6); Neutrophils % (auto) 52.9 % (37.0-80.0); Nucleated Red Blood Cells % 0.1 %; Red Blood Cells 3.83 10^6/uL (4.0-5.20); Red Cell Distribution Width 12.8 % (11.8-14.3); White Blood Cell 4.9 10^3/uL (4.4-10.8)
[2021-08-02 07:21] LABS: INR 1.06 (0.9-1.15)
[2021-08-02 07:30] LABS: Potassium 3.5 mmol/L (3.5-5.1)
[2021-08-02 07:50] LABS: Albumin 3.4 g/dL (3.4-5.0); BUN/Creatinine Ratio 17.8; Bilirubin, Total 0.7 mg/dL (0.2-1.0); Calcium 8.5 mg/dL (8.5-10.1); Total Protein 7.1 g/dL (6.4-8.2)
[2021-08-02 09:01] VITALS: BP 138/72
[2021-08-02] MEDS: SODIUM CHLORIDE 0.9% 1,000 ML IV SCH (09:40)
[2021-08-02 13:00] VITALS: BP 131/76
[2021-08-02] MEDS: DOCUSATE SOD 100 MG CAP PO SCH ×2 (13:11→23:43)
[2021-08-02] MEDS: AMIODARONE HCL 200 MG TAB PO SCH ×2 (13:12→23:44)
[2021-08-02] MEDS: ASPirin 81 mg TAB PO SCH (13:12)
[2021-08-02 17:10] VITALS: BP 109/50
[2021-08-02 22:00] VITALS: BP 133/70
[2021-08-02] MEDS: ATORVASTATIN 20 MG TAB PO SCH (23:44)
[2021-08-03 05:01] VITALS: BP 133/69
[2021-08-03] MEDS: SODIUM CHLORIDE 0.9% 1,000 ML IV SCH (05:36)
[2021-08-03 05:53] LABS: Basophils # (auto) 0.3 10 ^3/uL (0-0.2); Basophils % (auto) 4.6 % (0.0-2.0); Eosinophils # (auto) 0.3 10 ^3/uL (0-0.8); Eosinophils % (auto) 4.6 % (0.0-7.0); Hematocrit 34.6 % (36.0-46.0); Hemoglobin 12.2 g/dL (12.2-16.2); Lymphocytes # (auto) 1.8 10 ^3/uL (0.4-5.4); Lymphocytes % (auto) 31.4 % (10.0-50.0); Mean Corpuscular Hemoglobin 32.1 pg (28.0-32.0); Mean Corpuscular Hgb Conc. 35.2 g/dL (32.0-36.0); Mean Corpuscular Volume 91.1 fL (80.0-100.0); Monocytes # (auto) 0.6 10 ^3/uL (0-1.3); Monocytes % (auto) 9.6 % (0.0-12.0); Neutrophils # (auto) 2.8 10 ^3/uL (1.6-8.6); Neutrophils % (auto) 49.8 % (37.0-80.0); Red Cell Distribution Width 12.7 % (11.8-14.3); White Blood Cell 5.7 10^3/uL (4.4-10.8)
[2021-08-03 06:08] LABS: Potassium 4.1 mmol/L (3.5-5.1)
[2021-08-03] MEDS: ACCU-CHEK COMFORT CURVE STRIP VI SCH (06:09)
[2021-08-03] MEDS: InsuLIN REG 1unit/0.01ml Soln (100units/ml) SC SCH (06:09)
[2021-08-03 06:18] LABS: Albumin 3.4 g/dL (3.4-5.0); BUN/Creatinine Ratio 16.9; Bilirubin, Total 0.6 mg/dL (0.2-1.0); Calcium 8.7 mg/dL (8.5-10.1); Total Protein 6.9 g/dL (6.4-8.2)
[2021-08-03 08:00] VITALS: BP 139/68
[2021-08-03 09:00] VITALS: BP 139/68
[2021-08-03] MEDS: DOCUSATE SOD 100 MG CAP PO SCH (09:01)
[2021-08-03] MEDS: AMIODARONE HCL 200 MG TAB PO SCH (09:01)
[2021-08-03] MEDS: ASPirin 81 mg TAB PO SCH (09:01)
[2021-08-03] MEDS ORDERED: METO25TA36 PO (09:44)
[2021-08-03 12:22] VITALS: BP 139/68
== END 2021-08-03 13:10 | disposition home health service (06) | DRG 287 ==
LOC: ER 10:05 → OVERFLOW 12:46 → ICU CENTRL 14:45 → DOU IN ICU 14:50 → TELE-WESTW 07-30 09:00
PROVIDERS: ADMIT Family Medicine; ATTEND Internal Medicine
PROC: 4A023N8 Measurement of Cardiac Sampling and Pressure, Bilateral, Percutaneous Approach (ICD-10-PCS; principal; 2021-07-31)
PROC: B211YZZ Fluoroscopy of Multiple Coronary Arteries using Other Contrast (ICD-10-PCS; 2021-07-31)
PROC: B215YZZ Fluoroscopy of Left Heart using Other Contrast (ICD-10-PCS; 2021-07-31)
DX: I47.2 Ventricular tachycardia (principal); I24.9 Acute ischemic heart disease, unspecified; I42.2 Other hypertrophic cardiomyopathy; I50.32 Chronic diastolic (congestive) heart failure; E11.65 Type 2 diabetes mellitus with hyperglycemia; I48.91 Unspecified atrial fibrillation; E66.3 Overweight; I25.10 Atherosclerotic heart disease of native coronary artery without angina pectoris; R44.1 Visual hallucinations; I11.0 Hypertensive heart disease with heart failure; M47.812 Spondylosis without myelopathy or radiculopathy, cervical region; E78.5 Hyperlipidemia, unspecified; E87.6 Hypokalemia; Z20.822 Contact with and (suspected) exposure to COVID-19; F32.A Depression, unspecified; F41.9 Anxiety disorder, unspecified; K21.9 Gastro-esophageal reflux disease without esophagitis; Z95.5 Presence of coronary angioplasty implant and graft; I25.2 Old myocardial infarction; Z87.440 Personal history of urinary (tract) infections
CPT/HCPCS: 36415; 70450; 70551; 71045; 72040; 80053; 80061; 82962; 83036; 83735; 84443; 84484; 85025; 85610; 85730; 86850; 86900; 86901; 87081; 93005; 93306; 93460; 96365; 96375; 97110; 97116; 97163; 97530; 99152; 99291; C1751; G0378; J1815; J2001; J2250; J2405

== ENCOUNTER 2021-10-20 08:55 | Emergency (ER) | payer OTHER, MEDICAID ==
[~2021-10-20] VITALS: Ht 160 cm; Wt 74.8 kg
[~2021-10-20 08:55] MED LIST changes: +CHOL20007 PO; +DULO1CAP4 PO; +GLIP10TA9 PO; -GLIP5TAB12; -MET25T PO; -METF-370 PO; +METO25TA36 PO; +ROSU1TAB14 PO; -SIMV20TA2 PO
[2021-10-20 10:27] LABS: Urine Bacteria NONE SEEN /hpf (None Seen); Urine Blood Negative /uL (Negative); Urine Specific Gravity 1.019 (1.001-1.035); Urine WBC 9 /hpf (0 - 5)
[2021-10-20 11:24] LABS: Albumin 3.8 g/dL (3.4-5.0); Calcium 9.1 mg/dL (8.5-10.1)
[2021-10-20 11:28] LABS: BUN/Creatinine Ratio 22.6; Bilirubin, Total 0.7 mg/dL (0.2-1.0); Total Protein 8.1 g/dL (6.4-8.2)
[2021-10-20 11:56] LABS: Basophils # (auto) 0.1 10 ^3/uL (0-0.2); Eosinophils # (auto) 0.1 10 ^3/uL (0-0.8); Hematocrit 37.9 % (36.0-46.0); Hemoglobin 12.9 g/dL (12.2-16.2); Lymphocytes # (auto) 1.4 10 ^3/uL (0.4-5.4); Lymphocytes % (auto) 28.5 % (10.0-50.0); Mean Corpuscular Hgb Conc. 34.1 g/dL (32.0-36.0); Mean Corpuscular Volume 93.7 fL (80.0-100.0); Monocytes # (auto) 0.4 10 ^3/uL (0-1.3); Monocytes % (auto) 8.4 % (0.0-12.0); Neutrophils # (auto) 2.9 10 ^3/uL (1.6-8.6); Neutrophils % (auto) 59.1 % (37.0-80.0); Nucleated Red Blood Cells % 0.2 %; Red Blood Cells 4.04 10^6/uL (4.0-5.20); White Blood Cell 4.9 10^3/uL (4.4-10.8)
[2021-10-20] MEDS ORDERED: NITR-87 PO (13:19)
[2021-10-20 14:40] VITALS: BP 143/71
== END 2021-10-20 14:42 | disposition home or self-care (01) ==
LOC: ER 08:55
DX: N39.0 Urinary tract infection, site not specified (principal); I10 Essential (primary) hypertension; E11.9 Type 2 diabetes mellitus without complications; K21.9 Gastro-esophageal reflux disease without esophagitis; E78.5 Hyperlipidemia, unspecified
CPT/HCPCS: 36415; 71045; 74176; 80053; 81001; 84484; 85025; 93005

== ENCOUNTER 2022-10-16 05:40 | Emergency (ER) | payer OTHER, MEDICAID ==
[~2022-10-16] VITALS: Ht 154.9 cm; Wt 68.1 kg
[~2022-10-16 05:40] MED LIST changes: +NITR-87 PO
[2022-10-16 05:47] VITALS: BP 168/67
[2022-10-16] MEDS ORDERED: ACET-1080 PO (06:57)
[2022-10-16] MEDS ORDERED: ACETAMINOPHEN 500 MG TAB PO ONE (07:00)
== END 2022-10-16 07:10 | disposition home or self-care (01) ==
LOC: ER 05:40
DX: S42.024A Nondisplaced fracture of shaft of right clavicle, initial encounter for closed fracture (principal); S16.1XXA Strain of muscle, fascia and tendon at neck level, initial encounter; E11.9 Type 2 diabetes mellitus without complications; K21.9 Gastro-esophageal reflux disease without esophagitis; E78.5 Hyperlipidemia, unspecified; I10 Essential (primary) hypertension; W18.39XA Other fall on same level, initial encounter; Y93.01 Activity, walking, marching and hiking; Y92.89 Other specified places as the place of occurrence of the external cause; Y99.8 Other external cause status
CPT/HCPCS: 29105; 70450; 72125; 73030